=== PATIENT | female | born 1960 | race Caucasian/White ===

== ENCOUNTER 2017-05-09 11:29 | Emergency (ER) | payer MEDICAID, MEDICARE ==
[2017-05-09 12:08] VITALS: BP 108/59
--- NOTE | 2017-05-09 12:25 | UC ---
Skin Complaint HPI - HPI Summary HPI Summary: THREE DAYS OF WORSENING TENDER LUMP WITH PUS DRAINAGE ON RIGHT UNDERARM. NO FEVER. HAS HAD CYST ON BACK BEFORE. NEVER ON UNDERARM. NO KNOWN HISTORY OF MRSA - History of Current Complaint Chief Complaint: UCSkin Time Seen by Provider: 05/09/17 12:10 Stated Complaint: LUMP UNDER ARM Hx Obtained From: Patient Onset/Duration: Gradual Onset, Lasting Days, Still Present Skin Exposure Onset/Duration: Days Ago Timing: Constant Onset Severity: Mild Current Severity: Mild Location: Discrete - RIGHT UNDERARM Aggravating: Touch Alleviating: Nothing Associated Signs & Symptoms: Positive: Negative - Allergy/Home Medications Allergies/Adverse Reactions: Allergies Allergy/AdvReac Type Severity Reaction Status Date / Time Codeine Allergy Mild Nausea, Verified 05/09/17 11:57 Dizziness Niacin [From Niaspan] Allergy RED RASH, Verified 05/09/17 11:57 BURNING SENSATION ALL OVER BODY Review of Systems Constitutional: Negative Skin: Other - ABSCESS RIGHT INFERIOR AXILLA Eyes: Negative ENT: Negative Respiratory: Negative Cardiovascular: Negative Gastrointestinal: Negative Genitourinary: Negative Motor: Negative Neurovascular: Negative Musculoskeletal: Negative Neurological: Negative Psychological: Negative All Other Systems Reviewed And Are Negative: Yes PMH/Surg Hx/FS Hx/Imm Hx Previously Healthy: Yes - Surgical History Surgical History: Yes Surgery Procedure, Year, and Place: Gallbladder 2000; [facility] CT. appy 1967; [facility]. bunionectomy R foot 2009 [facility]; HIATAL HERNIA REPAIR 02/2014. CATARACTS BILAT,. esophageal - Family History Known Family History: Positive: None, Other - COLON CANCER - Social History Occupation: Employed Full-time Lives: With Family Alcohol Use: None Substance Use Type: None Smoking Status (MU): Former Smoker Amount Used/How Often: 1/2PPD ON & OFF THRU ADULTHOOD Length of Time of Smoking/Using Tobacco: 8 years Have You Smoked in the Last Year: No When Did the Patient Quit Smoking/Using Tobacco: 2009 - Immunization History Most Recent Influenza Vaccination: 2015 Most Recent Tetanus Shot: Jul 2013 Physical Exam Triage Information Reviewed: Yes Appearance: Well-Appearing, No Pain Distress, Well-Nourished Vital Signs: Initial Vital Signs Temp 98.7 F 05/09/17 12:01 Pulse 69 05/09/17 12:01 Resp 17 05/09/17 12:01 BP 108/59 05/09/17 12:01 Pulse Ox 99 05/09/17 12:01 Vital Signs Reviewed: Yes Eye Exam: Normal ENT Exam: Normal ENT: Positive: Normal ENT inspection, TMs normal Dental Exam: Normal Neck exam: Normal Neck: Positive: Supple, Nontender, No Lymphadenopathy Respiratory Exam: Normal Respiratory: Positive: Chest non-tender, Lungs clear, Normal breath sounds, No respiratory distress Cardiovascular Exam: Normal Cardiovascular: Positive: RRR, No Murmur, Pulses Normal Abdominal Exam: Normal Musculoskeletal Exam: Normal Musculoskeletal: Positive: Strength Intact, ROM Intact, No Edema Neurological Exam: Normal Psychological Exam: Normal Skin: Positive: Other - ABSCESS RIGHT INFERIOR AXILLA Course/Dx - Differential Diagnoses - Skin Complaint Differential Diagnoses: Abscess - Diagnoses Provider Diagnoses: DRAINING ABSCESS RIGHT INFERIOR AXILLA Discharge - Discharge Plan Condition: Stable Disposition: HOME Prescriptions: Amoxicillin/Clavulanate TAB* [Augmentin TAB 875*] 875 mg PO BID #20 tab Patient Education Materials: Abscess (ED) Referrals: Jessie Olivier MD [Primary Care Provider] - Images Front/Back of Body, Lg ([place]): 1 - ABSCESS RIGHT INFERIOR AXILLA
--- NOTE | 2017-05-12 07:54 | UC ---
Progress - Progress Note Progress Note: No I and D listed in progress note. Please contact patient and confirm that he is getting better on Augmentin.
== END 2017-05-09 12:25 | disposition home or self-care (01) ==
LOC: UCEAST 11:29
DX: L02.411 Cutaneous abscess of right axilla (principal); Z88.5 Allergy status to narcotic agent; Z87.891 Personal history of nicotine dependence
CPT/HCPCS: 87070; 87076; 87205; 87640; 87641; 99212; G0463